=== PATIENT | male | born 1950 | race Caucasian/White ===

== ENCOUNTER 2019-10-13 13:47 | Emergency (ER) | payer MEDICARE, BC ==
[2019-10-13] MEDS ORDERED: ceFAZolin 1 GM Vial IM ONE (13:50)
[2019-10-13] MEDS ORDERED: Diphtheria,Pertussis(Acell),Tetanus Vaccine 0.5 ML Syringe IM ONE (13:50)
--- NOTE | 2019-10-13 13:57 | EDM.PDOC ---
ED HPI GENERAL MEDICAL PROBLEM - General Chief Complaint: Lower Extremity Injury/Pain Stated Complaint: puncture to right 2nd toe Time Seen by Provider: 10/13/19 13:49 Source of Information: Reports: Patient History Limitations: Reports: No Limitations - History of Present Illness INITIAL COMMENTS - FREE TEXT/NARRATIVE: This patient is a 69 year old male that presents to the ER. Patient reports he was tearing down a fence and a lesa nail hit him in the top of the foot. Patient reports having a nail puncture his right 2nd toe. Patient reports he pulled nail and washed with peroxide. Denies any other injury. Onset: Today Onset Date: 10/13/19 Duration: Hour(s): (1) Location: Reports: Lower Extremity, Right Front/Back Body Image: 1 - puncutrew ound right 2nd toe top Quality: Reports: Ache Severity: Mild Improves with: Reports: None Worsens with: Reports: None Associated Symptoms: Reports: No Other Symptoms - Related Data Allergies Allergy/AdvReac Type Severity Reaction Status Date / Time No Known Allergies Allergy Verified 10/13/19 14:09 Home Meds: Home Meds Cholecalciferol (Vitamin D3) [Vitamin D3] 2,000 unit PO DAILY 01/18/17 [History] Loperamide HCl [Imodium A-D] 2 mg PO ASDIRECTED PRN 01/18/17 [History] Magnesium 500 mg PO DAILY 01/18/17 [History] Aspirin [Halfprin] 81 mg PO DAILY 10/12/17 [History] Glucosamine/D3/Boswellia Michela [Glucosamine Complex Tablet] 1 ea PO DAILY [History] Naproxen Sodium/Pseudoephedrin [Aleve Cold and Sinus Caplet] 220 mg PO ASDIRECTED PRN 10/12/17 [History] cephALEXin [Keflex] 500 mg PO QID 7 Days #28 capsule 10/13/19 [Rx] Past Medical History HEENT History: Reports: None Cardiovascular History: Reports: None Respiratory History: Reports: None Gastrointestinal History: Reports: None Genitourinary History: Reports: None Musculoskeletal History: Reports: None Neurological History: Reports: Head Trauma Psychiatric History: Reports: None Endocrine/Metabolic History: Reports: None Hematologic History: Reports: None Dermatologic History: Reports: None - Past Surgical History Cardiovascular Surgical History: Reports: None Respiratory Surgical History: Reports: None GI Surgical History: Reports: None Male Surgical History: Reports: None Endocrine Surgical History: Reports: None Neurological Surgical History: Reports: None Musculoskeletal Surgical History: Reports: None Dermatological Surgical History: Reports: None Review of Systems - Review of Systems Review Of Systems: See Below Constitutional: Reports: No Symptoms Eyes: Reports: No Symptoms Ears: Reports: No Symptoms Nose: Reports: No Symptoms Mouth/Throat: Reports: No Symptoms Respiratory: Reports: No Symptoms. Denies: Shortness of Breath Cardiovascular: Reports: No Symptoms GI/Abdominal: Reports: No Symptoms Genitourinary: Reports: No Symptoms Musculoskeletal: Reports: No Symptoms Skin: Reports: Wound (puncutre wound right 2nd toe top) Neurological: Reports: No Symptoms. Denies: Confusion, Dizziness, Headache, Numbness, Seizure, Syncope, Tingling, Weakness, Change in Speech, Gait Disturbance Psychiatric: Reports: No Symptoms ED EXAM, GENERAL - Physical Exam Exam: See Below Exam Limited By: No Limitations General Appearance: Alert, WD/WN, No Apparent Distress Respiratory/Chest: No Respiratory Distress, Lungs Clear, Normal Breath Sounds, No Accessory Muscle Use Cardiovascular: Normal Peripheral Pulses, Regular Rate, Rhythm, No Edema, No Gallop, No JVD, No Murmur, No Rub Peripheral Pulses: 2+: Posterior Tibial (L), Posterior Tibial (R), Dorsalis Pedis (R) Extremities: Normal Range of Motion, Non-Tender, No Pedal Edema, Normal Capillary Refill, Other (Right 2nd toe ROM intact. Neurovascular intact, pulses +2, cap refill < 2sec, sensory/motor function intact. ) Neurological: Alert, Oriented Psychiatric: Normal Affect, Normal Mood Skin Exam: Warm, Dry, Normal Color, No Rash, Wound/Incision (small puncture wound top of right 2nd toe. No FB seen. ) ED TRAUMA EXTREMITY PROCEDURES - Additional/Other Procedure(s) Other (Free Text) Procedure(s): Scrubbed with hibiclens the right 2nd toe puncture wound, rinse and irrigated with NS 50ml. No complications. No tendon seen on exam, no FB seen. Course - Vital Signs Last Recorded V/S: Last Vital Signs Temp 97.9 F 10/13/19 14:00 Pulse 81 10/13/19 14:00 Resp 18 10/13/19 14:00 BP 172/105 H 10/13/19 14:00 Pulse Ox 95 10/13/19 14:00 - Orders/Labs/Meds Orders: Active Orders 24 hr Category Date Time Status Vaccines to be Administered [RC] PER UNIT ROUTINE Care 10/13/19 13:50 Ordered Toes Second Digit Rt T6 [CR] Stat Exams 10/13/19 13:49 Ordered Meds: Medications Discontinued Medications Generic Name Dose Route Start Last Admin Trade Name Freq PRN Reason Stop Dose Admin Cefazolin Sodium 1 gm 10/13/19 13:50 Ancef IM 10/13/19 13:51 ONETIME ONE Diphtheria/Tetanus/Acell Pertussis 0.5 ml 10/13/19 13:50 Adacel IM 10/13/19 13:51 .ONCE ONE - Radiology Interpretation Free Text/Narrative:: right 2nd toe Xray: No FB, no fracture, no dislocation. - Re-Assessments/Exams Free Text/Narrative Re-Assessment/Exam: 10/13/19 14:00 Patient BP is elevated, but he is asymptomatic. Patient to followup with PCP for BP check. Departure - Departure Time of Disposition: 14:02 Disposition: Home, Self-Care 01 Condition: Fair Clinical Impression: Puncture wound of toe of right foot Qualifiers: Encounter type: initial encounter Qualified Code(s): S91.139A - Puncture wound without foreign body of unspecified toe(s) without damage to nail, initial encounter - Discharge Information *PRESCRIPTION DRUG MONITORING PROGRAM REVIEWED*: Not Applicable *COPY OF PRESCRIPTION DRUG MONITORING REPORT IN PATIENT REID: Not Applicable Prescriptions: cephALEXin [Keflex] 500 mg PO QID 7 Days #28 capsule Instructions: Puncture Wound, [id number] Forms: ED Department Discharge Additional Instructions: Followup with primary care provider this week for foot and also a blood pressure check Return to the ER for worsening of condition or any emergent concerns such as fever, redness, drainage Wash the wound twice a day with soap and water, rinse, dry, apply neosporin Keep wound clean You were given a TDAP shot today (tetanus) You were given antibiotic injection in ER today Keflex 500mg 1 pill four times a day for 7 days #28 no refill: Sent to pharmacy Tylenol or Motrin for pain Sepsis Event Note - Focused Exam Vital Signs: Vital Signs Temp Pulse Resp BP Pulse Ox 10/13/19 14:00 97.9 F 81 18 172/105 H 95 Date Exam was Performed: 10/13/19 Time Exam was Performed: 14:09 - My Orders Last 24 Hours: My Active Orders 10/13/19 13:49 Toes Second Digit Rt T6 [CR] Stat 10/13/19 13:50 Vaccines to be Administered [RC] PER UNIT ROUTINE - Assessment/Plan Last 24 Hours: My Active Orders 10/13/19 13:49 Toes Second Digit Rt T6 [CR] Stat 10/13/19 13:50 Vaccines to be Administered [RC] PER UNIT ROUTINE Plan: PLEASE SEE RN NOTE FOR PFSH
== END 2019-10-13 14:34 | disposition home or self-care (01) ==
LOC: CC.ED 13:47
DX: S91.134A Puncture wound without foreign body of right lesser toe(s) without damage to nail, initial encounter (principal); Z23 Encounter for immunization; Z79.82 Long term (current) use of aspirin; Z79.899 Other long term (current) drug therapy; W45.0XXA Nail entering through skin, initial encounter
CPT/HCPCS: 73660-T6; 90471; 90715; 96372; 99283; 99283-25; J0690

== ENCOUNTER 2021-03-05 20:55 | Emergency (ER) | payer MEDICARE, BC ==
--- NOTE | 2021-03-05 21:43 | EDM.PDOC ---
ED HPI GENERAL MEDICAL PROBLEM - General Chief Complaint: Genitourinary Problem Stated Complaint: urinary retention Time Seen by Provider: 03/05/21 21:10 Source of Information: Reports: Patient History Limitations: Reports: No Limitations - History of Present Illness INITIAL COMMENTS - FREE TEXT/NARRATIVE: Andrés is a 70 year old who presents today with urinary retention. Had total hip replacement by Dr. Berry on the March 03 in [place]. Had a catheter placed for surgery and it was removed yesterday. Has been passing some clots and incontinent of urine at times but unable to empty his bladder. Has a history of an enlarged prostate, has seen Dr. Polo for an increased PSA in the past. Does admit to abdominal distention/discomfort. Has not had much for a bowel movement since surgery, did not fill the stool softeners. Currently on oxycodone. Eating very little. He denies fever, temp was 100.5 on arrival here. No shortness of breath, chest pain, nausea or vomiting. Onset: Gradual Duration: Hour(s):, Constant Location: Reports: Abdomen Quality: Reports: Ache Severity: Mild Associated Symptoms: Denies: Confusion, Chest Pain, Cough, Fever/Chills, Loss of Appetite, Nausea/Vomiting, Shortness of Breath - Related Data Allergies Allergy/AdvReac Type Severity Reaction Status Date / Time No Known Allergies Allergy Verified 03/05/21 20:59 Home Meds: Home Meds Metoprolol Succinate [Toprol XL] 25 mg PO DAILY 03/05/21 [History] oxyCODONE HCl/Acetaminophen [Oxycodon-Acetaminophen 7.5-300] 325 mg PO Q6HR PRN 03/05/21 [History] Past Medical History HEENT History: Reports: None Cardiovascular History: Reports: Hypertension Respiratory History: Reports: None Gastrointestinal History: Reports: None Genitourinary History: Reports: Prostate Disorder Musculoskeletal History: Reports: Osteoarthritis Other Musculoskeletal History: R total hip replacement Neurological History: Reports: Head Trauma Psychiatric History: Reports: None Endocrine/Metabolic History: Reports: None Hematologic History: Reports: None Dermatologic History: Reports: None - Infectious Disease History Infectious Disease History: Reports: None - Past Surgical History Cardiovascular Surgical History: Reports: None Respiratory Surgical History: Reports: None GI Surgical History: Reports: None Male Surgical History: Reports: None Endocrine Surgical History: Reports: None Neurological Surgical History: Reports: None Musculoskeletal Surgical History: Reports: Hip Replacement Dermatological Surgical History: Reports: None Social & Family History - Family History Family Medical History: No Pertinent Family History - Tobacco Use Tobacco Use Status *Q: Current Every Day Tobacco User Tobacco Use Within Last Twelve Months: Snuff/Dip - Caffeine Use Caffeine Use: Reports: Coffee ED ROS GENERAL - Review of Systems Review Of Systems: See Below Constitutional: Reports: Malaise, Decreased Appetite. Denies: Fever, Chills, Weakness, Fatigue HEENT: Reports: No Symptoms Respiratory: Denies: Shortness of Breath Cardiovascular: Denies: Chest Pain, Edema, Lightheadedness Endocrine: Denies: Fatigue GI/Abdominal: Reports: Abdominal Pain (suprapubic discomfort), Constipation. Denies: Nausea, Vomiting : Reports: Hematuria, Incontinence, Urinary Retention Musculoskeletal: Reports: Joint Pain (s/p hip replacement) Skin: Reports: Other (incision/bandage) Neurological: Reports: No Symptoms ED EXAM, GENERAL - Physical Exam Exam: See Below Exam Limited By: No Limitations General Appearance: Alert, WD/WN, No Apparent Distress Head: Normocephalic Respiratory/Chest: No Respiratory Distress GI/Abdominal: Soft, Non-Tender, Distended, Abnormal Bowel Sounds (hypoactive bowel sounds) (Male) Exam: Suprapubic Fullness Extremities: Other (intact mepilex bandage to right hip, surrounding redness and swelling) Neurological: Alert, Oriented Skin Exam: Warm, Dry Course - Vital Signs Last Recorded V/S: Last Vital Signs Temp 100.5 F 03/05/21 21:02 Pulse 89 03/05/21 21:02 Resp 17 03/05/21 21:02 BP 159/83 H 03/05/21 21:02 Pulse Ox 95 03/05/21 21:02 - Orders/Labs/Meds Orders: Active Orders 24 hr Category Date Time Status Bladder Scan [RC] ASDIRECTED Care 03/05/21 21:29 Active Labs: Laboratory Tests 03/05/21 Range/Units 21:30 Urine Color Brown (YELLOW) Urine Appearance Cloudy (CLEAR) Urine pH 5.0 (4.5-8.0) Ur Specific [place] 1.020 (1.003-1.020) Urine Protein 100 H (NEGATIVE) mg/dL Urine Glucose (UA) Negative (NEGATIVE) mg/dL Urine Ketones 15 H (NEGATIVE) mg/dL Urine Occult Blood Large H (NEGATIVE) Urine Nitrite Negative (NEGATIVE) Urine Bilirubin Small H (NEGATIVE) Urine Urobilinogen 0.2 (0.2-1.0) EU/dL Ur Leukocyte Esterase Negative (NEGATIVE) Urine RBC 75-100 H (0-5) /HPF Urine WBC Not seen (0-5) /HPF Amorphous Sediment Few H (NOT SEEN) /HPF - Re-Assessments/Exams Free Text/Narrative Re-Assessment/Exam: 03/05/21 21:56 Bladder scan had 321 ml. Catheter placed, 250 ml results. blood-tinged urine noted. UA down. 03/05/21 22:01 uA negative for infection Departure - Departure Time of Disposition: 22:02 Disposition: Home, Self-Care 01 Condition: Fair Clinical Impression: Postoperative urinary retention - Discharge Information *PRESCRIPTION DRUG MONITORING PROGRAM REVIEWED*: No *COPY OF PRESCRIPTION DRUG MONITORING REPORT IN PATIENT REID: No Instructions: Acute Urinary Retention, Male, [id number], Indwelling Urinary Catheter Care, Adult Forms: ED Department Discharge Additional Instructions: 1. Push fluids 2. Start stool softener (colace) and take twice a day while on pain medications 3. Return on Monday for catheter removal 4. Call with any questions or concerns. Sepsis Event Note (ED) - Evaluation Sepsis Screening Result: No Definite Risk - Focused Exam Vital Signs: Vital Signs Temp Pulse Resp BP Pulse Ox 03/05/21 21:02 100.5 F 89 17 159/83 H 95 - My Orders Last 24 Hours: My Active Orders 03/05/21 21:29 Bladder Scan [RC] ASDIRECTED - Assessment/Plan Last 24 Hours: My Active Orders 03/05/21 21:29 Bladder Scan [RC] ASDIRECTED
== END 2021-03-05 22:10 | disposition home or self-care (01) ==
LOC: CC.ED 20:55
DX: R33.9 Retention of urine, unspecified (principal); I10 Essential (primary) hypertension; Z72.0 Tobacco use
CPT/HCPCS: 51702; 81001; 99284-25

== ENCOUNTER 2023-07-25 18:40 | Emergency (ER) | payer MEDICARE, BC ==
[2023-07-25 19:11] LABS: BASOPHILS ABSOLUTE AUTO 0.04 10^3/uL (0.00-0.50); BASOPHILS PERCENT AUTO 0.6 % (0-1); EOSINOPHILS ABSOLUTE AUTO 0.07 10^3/uL (0.00-1.50); EOSINOPHILS PERCENT AUTO 1.1 % (0-6); HEMATOCRIT 45.5 % (42.0-52.0); HEMOGLOBIN 15.7 g/dL (14.0-18.0); IMMATURE GRAN ABSOLUTE AUTO 0.01 10^3/uL (0.00-0.49); IMMATURE GRAN PERCENT AUTO 0.2 % (0.0-4.9); LYMPHOCYTES ABSOLUTE AUTO 0.71 10^3/uL (0.60-5.00); LYMPHOCYTES PERCENT AUTO 11.1 % (24-44); MEAN CORPUSCULAR HEMOGLOBIN 31.2 pg (27.0-32.0); MEAN CORPUSCULAR HGB CONC 34.5 g/dL (32.0-36.0); MEAN CORPUSCULAR VOLUME 90.3 fL (83.0-97.0); MONOCYTES ABSOLUTE AUTO 0.78 10^3/uL (0.00-1.50); MONOCYTES PERCENT AUTO 12.2 % (0-10); NEUTROPHILS ABSOLUTE AUTO 4.78 x10^3/uL (1.80-8.00); NEUTROPHILS PERCENT AUTO 74.8 % (41-71); PLATELET COUNT,PLT 152 10^3/uL (150-400); RED BLOOD CELL COUNT 5.04 x10^6/uL (4.50-6.00); WHITE BLOOD CELL COUNT,WBC 6.4 10^3/uL (4.0-11.0)
[2023-07-25 19:27] LABS: ALBUMIN 3.9 g/dL (3.4-5.0); BILIRUBIN TOTAL 0.4 mg/dL (0.0-1.0); C-REACTIVE PROTEIN 1.4 mg/dL (<=0.50); CALCIUM 8.5 mg/dL (8.4-10.1); EST CRCL DRUG DOSING (CG) 66.5 mL/min; MAGNESIUM 1.8 mg/dL (1.8-2.4); POTASSIUM,K 4.1 mEq/L (3.5-5.0); PROTEIN TOTAL,TP 7.1 g/dL (6.4-8.2)
[2023-07-25 19:33] LABS: APPEARANCE,URINE CLEAR (CLEAR); BILIRUBIN,URINE NEGATIVE (NEGATIVE); COLOR,URINE YELLOW (YELLOW); GLUCOSE,URINE NEGATIVE (NEGATIVE); KETONES,URINE NEGATIVE (NEGATIVE); LEUKOCYTE ESTERASE,URINE NEGATIVE (NEGATIVE); NITRITE,URINE NEGATIVE (NEGATIVE); OCCULT BLOOD,URINE NEGATIVE (NEGATIVE); PH,URINE 5.5 (4.5-8.0); PROTEIN,URINE NEGATIVE (NEGATIVE)
== END 2023-07-25 20:08 | disposition home or self-care (01) ==
LOC: CC.ED 18:40
DX: R53.1 Weakness (principal); I10 Essential (primary) hypertension; Z79.899 Other long term (current) drug therapy; W19.XXXA Unspecified fall, initial encounter
CPT/HCPCS: 36415; 70450; 71045; 80053; 81003; 83735; 84484; 85025; 85730; 86140; 93005; 93010; 99284; 99285